=== PATIENT | female | born 1960 | race Caucasian/White ===

== ENCOUNTER 2016-12-10 11:34 | Day surgery (SDC) | payer BC, MEDICARE ==
--- NOTE | ~2016-12-10 | EGD ---
EGD REPORT [facility] [address] [place]. [address] NAME: TAB FERMIN : [birth year] STATUS : REG [facility]#: [id number] AGE: 56 ADM/REG DATE : 12/10/16 MR#: [id number] REPORT SERV DATE: 12/10/16 DICTATED BY: SANDRITA CASTRO DATE: 12/10/16 REPORT STATUS : Draft [facility]: [facility] DATE: 12/10/16 Endoscopy Center Patient Name: Tab Fermin Date of : 1960 Attending MD: SANDRITA CASTRO MD Procedure Date No Time: 12/10/2016 Procedure: Upper GI endoscopy Indications: Dysphagia Referring MD: EUNICE LLOYD MD Medicines: Monitored Anesthesia Care Complications: No immediate complications. Procedure: Pre-Anesthesia Assessment: - ASA Grade Assessment: III - A patient with severe systemic disease. After obtaining informed consent, the endoscope was passed under direct vision. Throughout the procedure, the patient's blood pressure, pulse, and oxygen saturations were monitored continuously. The GIF H190 [id number] was introduced through the mouth, and advanced to the second part of duodenum. The upper GI endoscopy was accomplished without difficulty. The patient tolerated the procedure well. Findings: No endoscopic abnormality was evident in the esophagus to explain the patient's complaint of dysphagia. It was decided, however, to proceed with dilation of the entire esophagus. A guidewire was placed and the scope was withdrawn. Dilation was performed with a Savary dilator with mild resistance at 45 Fr. Estimated blood loss: none. Striped mildly erythematous mucosa without bleeding was found in the gastric antrum. Biopsies were taken with a cold forceps for histology. The duodenal bulb and 2nd part of the duodenum were normal. Biopsies were taken with a cold forceps for histology. The cardia and gastric fundus were normal on retroflexion. A small hiatus hernia was present. Impression: - No endoscopic esophageal abnormality to explain patient's dysphagia. Esophagus dilated. Dilated. - Erythematous mucosa in the antrum. Biopsied. - Normal duodenal bulb and 2nd part of the duodenum. Biopsied. Recommendation: - Await pathology results. - Follow an antireflux regimen. EGD REPORT [address] [address] NAME: TAB FERMIN : [birth year] STATUS : REG [facility] PAT#: [id number] AGE: 56 ADM/REG DATE : 12/10/16 MR#: [id number] REPORT SERV DATE: 12/10/16 DICTATED BY: SANDRITA CASTRO DATE: 12/10/16 REPORT STATUS : Draft TRANSCRIBED BY: [employer] DATE: 12/10/16 Procedure Code(s): --- Professional --- 03828, Esophagogastroduodenoscopy, flexible, transoral; with insertion of guide wire followed by passage of dilator(s) through esophagus over guide wire 39612, Esophagogastroduodenoscopy, flexible, transoral; with biopsy, single or multiple Diagnosis Code(s): --- Professional --- R13.10, Dysphagia, unspecified K31.9, Disease of stomach and duodenum, unspecified CPT copyright 2013 [employer]. All rights reserved. The codes documented in this report are preliminary and upon logistics associate review may be revised to meet current compliance requirements. SANDRITA CASTRO MD 12/10/2016 1:01 PM This report has been signed electronically. Number of Addenda: 0 Note Initiated On: 12/10/2016 12:44 PM Scope Withdrawal Time 0 hours 0 minutes 0 seconds [address] [place] [address]
--- NOTE | ~2016-12-10 | EGD ---
EGD REPORT [address] [place]. [address] NAME: TAB FERMIN : 56 STATUS : REG [facility]#: [id number] AGE: 56 ADM/REG DATE : 12/10/16 MR#: [id number] REPORT SERV DATE: 12/10/16 DICTATED BY: SANDRITA CASTRO DATE: 12/10/16 REPORT STATUS : Draft TRANSCRIBED BY: [facility] DATE: 12/10/16 Endoscopy Center Patient Name: Tab Fermin Date of : 1960 Attending MD: SANDRITA CASTRO MD Procedure Date No Time: 12/10/2016 Procedure: Colonoscopy Indications: Change in bowel habits, Constipation Referring MD: EUNICE LLOYD MD Medicines: Monitored Anesthesia Care Complications: No immediate complications. Procedure: Pre-Anesthesia Assessment: - ASA Grade Assessment: III - A patient with severe systemic disease. After I obtained informed consent, the scope was passed under direct vision. Throughout the procedure, the patient's blood pressure, pulse, and oxygen saturations were monitored continuously. The PCF H190L [id number] was introduced through the anus and advanced to the terminal ileum, with identification of the appendiceal orifice and IC valve. The colonoscopy was performed without difficulty. The patient tolerated the procedure well. The quality of the bowel preparation was adequate. Findings: The digital rectal exam was normal. Pertinent negatives include no palpable rectal lesions. Hemorrhoids were found during retroflexion and were moderate. The terminal ileum appeared normal. Impression: - Hemorrhoids. Recommendation: - Patient has a contact number available for emergencies. The signs and symptoms of potential delayed complications were discussed with the patient. Return to normal activities tomorrow. Written discharge instructions were provided to the patient. - Regular diet. - Continue present medications. - Repeat colonoscopy in 10 years for screening purposes. - Return to GI clinic. Procedure Code(s): --- Professional --- 86735, Colonoscopy, flexible, proximal to splenic flexure; diagnostic, with or without collection of EGD REPORT [address] [place] [address] [address] [address] NAME: TAB FERMIN : [birth year] STATUS : REG [facility]#: [id number] AGE: 56 ADM/REG DATE : 12/10/16 MR#: [id number] REPORT SERV DATE: 12/10/16 DICTATED BY: SANDRITA CASTRO DATE: 12/10/16 REPORT STATUS : Draft TRANSCRIBED BY: [employer] DATE: 12/10/16 specimen(s) by brushing or washing, with or without colon decompression (separate procedure) Diagnosis Code(s): --- Professional --- K64.9, Unspecified hemorrhoids R19.4, Change in bowel habit K59.00, Constipation, unspecified CPT copyright 2013 [employer]. All rights reserved. The codes documented in this report are preliminary and upon entry level sales representative review may be revised to meet current compliance requirements. SANDRITA CASTRO MD 12/10/2016 1:22 PM This report has been signed electronically. Number of Addenda: 0 Note Initiated On: 12/10/2016 12:42 PM Scope Withdrawal Time 0 hours 11 minutes 46 seconds [address] [facility] [place] [address]
[~2016-12-10 11:34] MED LIST: AMB10 PO; ASA5GR PO; ASABAYER PO; BACLOFEN; BACLOFEN20 MG PO; CALCIUM; CALTRA600D PO; CLONIDINE; CONSTULOSE PO; CYMBALTA60 PO; DIL2TAB PO; DIL4TAB PO; DILAUDID; DSS PO; FORTAMET1000 MG PO; GLUMETZA500 MG PO; HIPREX1 GM OR; HIPREX1 GM PO; KETOROLAC; LEVEMFLXPN SC; LIOR10 PO; MSCONT60 PO; MSCONTIN PO; MULTIVIT/MIN PO; MULTIVITAMI1 PO; NEUR800 PO; NOVOPENMIX SC; PCET PO; PRIN2.5 PO; RANITIDINE300 MG PO; RECLAST IV; RELISTOR12 MG/0.6 SC; RITALIN10 PO; RITALIN20 PO; SANCTURA20 MG PO; SENTAB PO; V5 PO; VESICARE10 MG PO; ZANTAC300 MG PO; ZOCOR40 PO; ZOL100 PO; [UNRECOGNIZED DRUG - OTHER]
== END 2016-12-10 23:59 | disposition home health service (06) ==
LOC: DMU 11:34
PROVIDERS: Internal Medicine Gastroenterology
PROC: 0DJD8ZZ Inspection of Lower Intestinal Tract, Via Natural or Artificial Opening Endoscopic (ICD-10-PCS; 2016-12-10)
PROC: 0D758ZZ Dilation of Esophagus, Via Natural or Artificial Opening Endoscopic (ICD-10-PCS; principal; 2016-12-10 13:00)
PROC: 0DB98ZX Excision of Duodenum, Via Natural or Artificial Opening Endoscopic, Diagnostic (ICD-10-PCS; 2016-12-10 13:00)
PROC: 0DB68ZX Excision of Stomach, Via Natural or Artificial Opening Endoscopic, Diagnostic (ICD-10-PCS; 2016-12-10 13:00)
DX: K29.50 Unspecified chronic gastritis without bleeding (principal); K44.9 Diaphragmatic hernia without obstruction or gangrene; K21.9 Gastro-esophageal reflux disease without esophagitis; I10 Essential (primary) hypertension; J45.909 Unspecified asthma, uncomplicated; K64.9 Unspecified hemorrhoids; G43.909 Migraine, unspecified, not intractable, without status migrainosus; E78.00 Pure hypercholesterolemia, unspecified; E11.9 Type 2 diabetes mellitus without complications; G47.30 Sleep apnea, unspecified; M81.0 Age-related osteoporosis without current pathological fracture; G90.50 Complex regional pain syndrome I, unspecified; F32.9 Major depressive disorder, single episode, unspecified; D64.9 Anemia, unspecified; Z88.8 Allergy status to other drugs, medicaments and biological substances; Z86.718 Personal history of other venous thrombosis and embolism; Z88.2 Allergy status to sulfonamides; Z99.81 Dependence on supplemental oxygen; Z90.710 Acquired absence of both cervix and uterus; Z90.49 Acquired absence of other specified parts of digestive tract; Z98.890 Other specified postprocedural states
CPT/HCPCS: 82962; 88305